=== PATIENT | female | born 1965 | race Caucasian/White ===

== ENCOUNTER 2024-05-29 11:39 | Emergency (ER) | payer BC, SELFPAY ==
--- NOTE | ~2024-05-29 | XR_ITS ---
CLINICAL HISTORY: lower back pain, radiating down left leg 3 views lumbar spine Comparison: None Findings: Normal vertebral body alignment. No acute fractures or dislocation. Mild degenerative changes. IMPRESSION: No acute findings. This document has been electronically signed by: Felicitas Soto MD on 05/29/2024 13:53:20
--- NOTE | 2024-05-29 11:52 | ED.GENADULT ---
HPI - General Adult General Chief complaint: Extremity Injury, Lower Stated complaint: DVT? Related Data Allergies Allergy/AdvReac Type Severity Reaction Status Date / Time acetaminophen [From Percocet] Allergy Intermediate Hallucinati Verified 05/29/24 11:56 ons oxycodone [From Percocet] Allergy Intermediate Hallucinati Verified 05/29/24 11:56 ons PMF Social History Social History Advance Directives: No Advance Directives Information Provided: No Do you have a plan to hurt others: No Plan Physical Exam ED Vital Signs: BMI result Body Mass Index 30.1 Course Course Course Narrative: This is a rapid medical exam. Deferred additional HPI, ROS, PE to primary provider. 59 yo female with history of DM here with pain from left lower back/pelvis radiating down left leg x 1 week. Taking ibuprofen, muscle relaxant, tylenol with no relief. Went to [facility]-diagnosed with sciatica. Will obtain x-ray IZABEL Small APRN Discharge Plan Discharge Clinical Impression: Back pain Patient Disposition: Left W/O Completing Treatment Discharge Date/Time: 05/29/24 19:58
[2024-05-29 11:53] VITALS: BP 164/97; PULSE 99; RESP 16; TEMP 36.4; O2SAT 98; BMI 30.1
== END 2024-05-29 19:58 | disposition left against medical advice (07) ==
PROVIDERS: Emergency Provider Emergency Medicine; PCP Physician Assistant Medical
DX: M54.50 Low back pain, unspecified (principal)
CPT/HCPCS: 72100; 99281; 99283

== ENCOUNTER → 2024-05-29 11:55 | Outpatient (BNV) | payer SELFPAY | PROVIDERS: PCP Physician Assistant Medical; Visit Provider Radiology Diagnostic Radiology | DX: M54.42 Lumbago with sciatica, left side (principal) | CPT/HCPCS: 72100 ==

== ENCOUNTER 2024-09-01 12:33 | Outpatient (AMB) | payer BC, SELFPAY ==
--- NOTE | 2024-09-01 12:48 | HO.SPINEOV ---
Vital Signs 09/01/24 12:48 Height 5 ft 1 in Weight 159 lb BMI 30.0 Intake Visit Reasons: LBP/ Trouble walking Intake Note: Ms. Beasley is here today c/o persistent back pain with difficulty walking. It Teacher Required: No Allergies acetaminophen [From Percocet] Allergy (Intermediate, Verified 09/01/24 12:50) Hallucinations oxycodone [From Percocet] Allergy (Intermediate, Verified 09/01/24 12:50) Hallucinations Physical Exam Vital Signs: BMI result Body Mass Index 30.0 Assessment & Plan Assessment & Plan (1) Leg pain: Code(s): M79.606 - Pain in leg, unspecified Category: Medical Plan Dear [place], Mrs beasley is a 59-year-old female who came in today after an emergency room visit at [facility] last week. She has had on and off back pain but progressively worsening pain going down both legs since last February. She has been followed at the [facility]. She has been trialed on a number of different things. Her pain is located along the lumbar region and radiates down into her anterior thigh going into her knee and subsequently down into her anterior tibial region. It is mostly just on the right side at this point. She underwent an MRI and was told there was not much going on. A subsequent MRI done at [facility] last week also did not show much in the way of any pathology. She was going to follow up with [facility] but it sounds like they turned her over to our office for some reason. She is here today to follow-up after that emergency room visit last week PMH: She is a diabetic, does not sound like she has good control of her A1c, her last check was at or around 9. 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, thyroidectomy Social hx: Does not smoke, drink use any recreational drugs Medications: Tylenol, muscle relaxer, atorvastatin, magnesium, multivitamin, vitamin-D, Mounjaro, Lantus, albuterol Allergies: Acetaminophen/Percocet Physical exam: Awake alert oriented no acute distress, strength and reflexes are normal with the exception of the right Achilles Imaging review: Lumbar MRI done at [facility] about a week ago or so shows very mild disc degeneration at L5-S1, no evidence of nerve impingement, there is some written report on discharge paperwork that she has epidural lipomatosis in the distal sacral canal, this is not mentioned by the radiologist, and there is a small amount of it but nothing meaningful. Impression: 59-year-old female with bilateral lower extremity radiculopathy of unclear etiology. I agree with the [facility] team and the [facility] that there is no focal area in her lumbar spine that would explain the symptoms. This has to be some kind of neuritis, maybe a polyneuropathy related to her diabetes but unfortunately it is nothing that we can fix surgically. Thank you for allowing us to care for your patient. The total time spent with this visit with this patient was 45 minutes reviewing history, physical exam, lumbar imaging review, and implementation of treatment plan or further diagnostic testing Sean Navarro MD,PhD [facility] Coding Level of Care Code New Pt Level 4 (42268) Diagnoses Leg pain M79.606
== END 2024-09-01 14:11 | disposition home or self-care (01) ==
LOC: HO.HNS 12:33
PROVIDERS: PCP Physician Assistant Medical; Referring Provider Physician Assistant Medical; Visit Provider Physician Assistant
DX: M79.606 Pain in leg, unspecified (principal)
CPT/HCPCS: 99204